=== PATIENT | female | born 2000 | race Caucasian/White ===

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

== ENCOUNTER 2025-06-27 14:30 | Outpatient (CLI) | payer BC, SELFPAY ==
--- OUTSIDE RECORDS SUMMARY | 2025-06-22 04:52 | XMS_ITS | Encounter Summary ---
Author Organization [facility] Address [address] [place] [id number] Care Team Providers Care Experience Specialist Name Role Phone Shaggy Skinner MD Primary Care Provider [phone] Source Comments This information has been disclosed to you from confidential records protectfrom disclosure by state law. You shall make no further disclosure of thisinformation without the specific, written, and informed release of theindividual to whom it pertains, or as otherwise permitted by law. A generalauthorization for the release of medical or other information is not sufficientfor the purposes of the release of HIV test results or diagnoses. [id number] Reason for Visit * Reason Comments Chest Pain Encounter Details Date Type Department Care Team (Late st Contact Info) Description 06/22/2025 4:52 AM EDT - 06/22/2025 5:36 AM EDT Emergency [facility] Emergency Department [address] [place] [id number] Discharge Disposition: ED Dismiss - Left Without Being Seen Social History Tobacco Use Types Packs/Day Years Used Date Smoking Tobacco: Every Day Cigarettes Alcohol Use Standard Drinks/Week Comments Yes 0 (1 standard drink = 0.6 oz pur e alcohol) PHQ-2 Answer Date Recorded PHQ-2 Total Score 0 06/10/2023 Yearly Questionnaire Answer Date Record ed Do you need any assistance w ith obtaining housing, meals, medication, transportation or medical equipment? No 06/10 Assistance needed for: Not on file Yearly Questionnaire Answer Date Record ed Do you need any assistance w ith obtaining housing, meals, medication, transportation or medical equipment? No 06/10 Assistance needed for: Not on file 3 Yearly Questionnaire Answer Date Record ed Do you need any assistance w ith obtaining housing, meals, medication, transportation or medical equipment? No 06/10 Assistance needed for: Not on file 3 Comments Unknown Sex and Gender Information Value Date Recorded Sex Assigned at Not on file Legal Sex Female 6:52 AM EDT Gender Identity Not on file Sexual Orientation Not on file documented as of this encounter Last Filed Vital Signs Vital Sign Reading Time Taken Comments Blood Pressure 120/79 06/22/2025 5:03 AM EDT Pulse 87 06/22/2025 5:03 AM EDT Temperature - - Respiratory Rate 16 06/22/2025 5:03 AM EDT Oxygen Saturation 98% 06/22/2025 5:03 AM EDT Inhaled Oxygen Concentration 98% 06/22/2025 5 :03 AM EDT Weight - - Height - - Body Mass Index - - documented in this encounter Nursing Notes * Braydon Velazquez RN - 06/22/2025 4:52 AM EDT Pt to ED for chest pain. Describes the pain as pressure/squeezing under right breast. Pain started approximately 20 minutes ago. Endorses bilat hand cramping. documented in this encounter ED Notes * Pat Caldwell RN - 06/22/2025 5:35 AM EDT Patient and boyfriend seen exiting the lobby. Patient's boyfriend states that patient is feeling much better and is leaving now. * Pat Caldwell RN - 06/22/2025 5:20 AM EDT Patient vomiting in trash can in ED lobby documented in this encounter Plan of Treatment Not on file documented as of this encounter Procedures Procedure Name Priority Date/Time Associated Diagnosis Comments ED ECG 12-LEAD (MUSE) STAT 06/22/2025 4:59 AM EDT documented in this encounter Results * ED ECG 12-Lead (MUSE) (06/22/2025 4:59 AM EDT) 06/22/2025 4:59 AM EDT Narrative MUSE - 06/22/2025 8:54 AM EDT Ventricular Rate: 68 BPM Atrial Rate: 68 BPM P-R Interval: 144 ms QRS Duration: 78 ms QT: 414 ms QTc: 440 ms P [place]: 77 degrees R [place]: 90 degrees T [place]: 63 degrees Diagnosis Line: ^ INTERPRETATION NOT AVAILABLE--ECG READ IN ER ^ Confirmed by PHYSICIAN, ER ([id number]), editor index Ines Adame ([id number]) on 06/22/2025 8:54:27 AM us Triage Protocol Emergency MD ECG ORDERABLES Fin al Result MUSE documented in this encounter Visit Diagnoses Not on filedocumented in this encounter Care Teams Experience Specialist Relationship Specialty Start Date End Date Shaggy Skinner MD [address] [place] [address] [place] [id number] PCP - General Internal Medicine 06/10/23 documented as of this encounter
[2025-06-27 23:01] LABS: Hematocrit 40.3 % (37.0-47.0); Hemoglobin 13.6 g/dL (12.2-16.2); Immature Granulocytes % 0.3 %; Mean Corpuscular HGB Conc 33.7 g/dL (31.8-35.4); Mean Corpuscular Hemoglobin 31.7 pg (27.0-31.2); Mean Corpuscular Volume 93.9 fl (81-99); Nucleated Red Blood Cells % 0 %; Platelet Count 304 K/mm3 (142-424); Red Blood Count 4.29 M/mm3 (4.20-5.40); Red Cell Distribution Width-SD 44.1 fL; White Blood Count 7.0 K/mm3 (4.8-10.8)
[2025-06-27 23:17] LABS: Alanine Aminotransferase 21 U/L (12-78); Albumin Level 4.6 g/dl (3.5-5.0); Albumin/Globulin Ratio 1.9 (1.1-1.8); Alkaline Phosphatase 41 U/L (38-126); Anion Gap 17.0 mEq/L (5-15); Aspartate Amino Transferase 35 U/L (14-36); Bilirubin,Total 0.8 mg/dl (0.2-1.3); Blood Urea Nitrogen 9 mg/dl (7-17); Calcium 9.7 mg/dl (8.4-10.2); Carbon Dioxide 22 mmol/L (22.0-30.0); Chloride 103 mmol/L (98-107); Creatinine,Serum 0.70 mg/dl (0.52-1.04); Estimated Glomerular Filt Rate 102 ml/min (>60); GFR (African American) 123 ML/MIN (>60); Globulin 2.4 g/dL (1.3-3.2); Potassium 5.0 mmoL/L (3.5-5.1); Sodium 137 mmol/L (136-145); Total Protein,Serum 7.0 g/dl (6.3-8.2)
[2025-06-27 23:32] LABS: T4 (Thyroxine) 8.6 ug/dl (5.53-11.0)
[2025-06-27 23:46] LABS: Thyroid Stimulating Hormone 0.77 uIU/mL (0.465-4.68)
[2025-06-27 23:48] LABS: Glucose 50 mg/dl (74-100)
[2025-06-28 00:04] LABS: Hepatitis C Ab Qual. W/ RFX NEGATIVE (Negative)
[2025-06-28 00:05] LABS: Vitamin B12 461 pg/mL (239-931)
--- OUTSIDE RECORDS SUMMARY | 2025-06-28 10:08 | XMS_ITS | Clinical Summary ---
Author Organization [facility] Address [address] [place] [id number] Care Team Providers Care Knife Grinder Name Role Phone Shaggy Skinner MD Primary Care Provider [phone] Source Comments This information has been disclosed to you from confidential records protectedfrom disclosure by state law. You shall make no further disclosure of thisinformation without the specific, written, and informed release of theindividual to whom it pertains, or as otherwise permitted by law. A generalauthorization for the release of medical or other information is not sufficientfor the purposes of therelease of HIV test results or diagnoses. [id number] Allergies No known active allergies Medications No known medications Active Problems No known active problems Encounters Date Type Department Care Team Description 06/22/2025 4:52 AM EDT - 06/22/2025 5:36 AM EDT Emergency [facility] Emergency Department [address] [place] [phone] Discharge Disposition: ED Dismiss - Left Without Being Seen from Last 3 Months Family History Medical History Relation Comments Diabetes Father Stroke Father Relation Status Comments Father Social History Tobacco Use Types Packs/Day Years Used Date Smoking Tobacco: Every Day Cigarettes Tobacco Cessation:Ready to Q uit: No Alcohol Use Standard Drinks/Week Comments Yes 0 [...] on file Sexual Orientation Not on file Last Filed Vital Signs Vital Sign Reading Time Taken Comments Blood Pressure 120/79 06/22/2025 5:03 AM EDT Pulse 87 06/22/2025 5:03 AM EDT Temperature - - Respiratory Rate 16 06/22/2025 5:03 AM EDT Oxygen Saturation 98% 06/22/2025 5:03 AM EDT Inhaled Oxygen Concentration 98% 06/22/2025 5 :03 AM EDT Weight 45.4 kg (100 lb) 06/10/2023 3:36 PM EDT Height 160 cm (5' 3 ) 06/10/2023 3:36 PM EDT Body Mass Index 17.71 06/10/2023 3:36 PM EDT Plan of Treatment Health Maintenance Due Date Last Done Comments Hepatitis C Screening (MyChart) 1999 Immunization: DTaP/Tdap/Td ( 6 - Tdap) 2010 01/29/2005, 02/16/2001, 05/12/2000, Additional history exists Alcohol Misuse Screening 2017 HIV Screening 2017 Immunization: Pneumococcal ( 1 of 2 - PCV) 2018 04/17/2001, 02/16/2001 Cervical Cancer Screening/Pa p Smear (MyChart) 2020 Depression Screening 06/10/2024 06/10/2023 Immunization: COVID-19 ( season) 2025 Immunization: Influenza (MyC levy) (#1) 2025 Immunization: Hepatitis B Completed 2000, 02/18/2000, 1999 Immunization: HPV Completed 08/29/2015, 08/08/2014 Immunization: Meningococcal ACWY Completed 05/14/20 18 Procedures Procedure Name Priority Date/Time Associated Diagnosis Comments ED ECG 12-LEAD (MUSE) STAT 06/22/2025 4:59 AM EDT from Last 3 Months Results * ED ECG 12-Lead (MUSE) (06/22/2025 4:59 AM EDT) 06/22/2025 4:59 AM EDT Narrative MUSE - 06/22/2025 8:54 AM EDT Ventricular Rate: 68 BPM Atrial Rate: 68 BPM P-R Interval: 144 ms QRS Duration: 78 ms QT: 414 ms QTc: 440 ms P [place]: 77 degrees R [place]: 90 degrees T [place]: 63 degrees Diagnosis Line: ^ INTERPRETATION NOT AVAILABLE--ECG READ IN ER ^ Confirmed by PHYSICIAN, ER ([id number]), proposal editor Ines Adame ([id number]) on 06/22/2025 8:54:27 AM us Triage Protocol Emergency MD ECG ORDERABLES Fin al Result MUSE from Last 3 Months Insurance BLUE ACCESS Care Teams Knife Grinder Relationship Specialty Start Date End Date Shaggy Skinner MD [address] [place], [place] [id number] PCP - General Internal Medicine 06/10/23
--- OUTSIDE RECORDS SUMMARY | 2025-06-28 10:08 | XMS_ITS | Clinical Summary ---
Author Organization [facility] Address [address] [place] [address] Care Team Providers Care Histopathologist Name Role Phone Shaggy Skinner MD Primary Care Provider [phone] Allergies No known active allergies Medications No known medications Family History Medical History Relation Name Comments Conversions - Other Father Known he alth problems: none Conversions - Other Mother Known he alth problems: none Multiple sclerosis Mother Relation Name Status Comments Father Mother Social History Tobacco Use Types Packs/Day Years Used Date Smoking Tobacco: Never Smokeless Tobacco: Never Tobacco Cessation:Counseling Given: Not Answered Comments Unknown Sex and Gender Information Value Date Recorded Sex Assigned at Not on file Legal Sex Female 7:18 PM EDT Gender Identity Not on file Sexual Orientation Not on file Last Filed Vital Signs Vital Sign Reading Time Taken Comments Blood Pressure 108/68 05/19/2023 10:50 AM EDT Pulse 76 05/19/2023 10:50 AM EDT Temperature - - Respiratory Rate - - Oxygen Saturation 100% 05/19/2023 10:50 AM EDT Inhaled Oxygen Concentration - - Weight 45.4 kg (100 lb) 05/19/2023 10:50 AM EDT Height 162.6 cm (5' 4 ) 05/19/2023 10:50 AM EDT Body Mass Index 17.16 05/19/2023 10:50 AM EDT Plan of Treatment Health Maintenance Due Date Last Done Comments [facility]-Depression Screening 1999 [facility]-HIV Screening 1999 [facility]-Hepatitis C Screening 1999 [facility]-Infant/Child/Adol SDOH Screenings 1999 [facility]-Varicella Vaccines (2 of 2 - 2-dose childhood series) 2003 10/28/2000 [facility]-DTaP,Tdap,and Td Vaccines (6 - Tdap) 2010 01/29/2005, 02/16/2001, 05/12/2000, Additional history exists [facility]- SDOH Screenings 2017 [facility]-Adult SDOH Screenings 2017 [facility]-Pap Smear 2020 [id number] Vaccine ( season) 2025 [facility]-Influenza Vaccine (#1) 2025 [facility]-Zoster Vaccines (1 of 2) 2049 10/28/2000 [facility]-HIB Vaccines Completed 10/28/2000, , 02/18/2000, Additional history exists [facility]-Hepatitis B Vaccines Completed 001, 02/18/2000, 1999 [facility]-Pneumococcal Vaccine: Pediatrics (0 to 5 Years) and At-Risk Patients (6 to 49 Years) Aged Out 04/17/2001, 02/16/2001 No longer eligibl e based on patient's age to complete this topic [facility]-IPV Vaccines Completed 01/29/2005, , 02/18/2000, Additional history exists HPV Vaccines Completed 08/29/2015, 08/08/2014 [facility]-Hepatitis A Vaccines Completed 05/14/2018, 03/2014 [facility]-Rotavirus Vaccines Aged Out No lo nger eligible based on patient's age to complete this topic Insurance HEMAL Care Teams Histopathologist Relationship Specialty Start Date End Date Shaggy Skinner MD [address] [place] [id number] PCP - General 02/09/21
--- OUTSIDE RECORDS SUMMARY | 2025-06-28 10:09 | XMS_ITS | Clinical Summary ---
Author Organization [facility] Address [address] [place] [address] Phone Care Team Providers Care Director [facility] Name Role Phone Unavailable Primary Care Provider Unavailabl e Allergies No known active allergies Medications No known medications Social History Tobacco Use Types Packs/Day Years Used Date Smoking Tobacco: Every Day Cigarettes Smokeless Tobacco: Never Comments:pt vapes Alcohol Use Standard Drinks/Week Comments Yes 0 (1 standard drink = 0.6 oz pur e alcohol) occas Comments No Sex and Gender Information Value Date Recorded Sex Assigned at Not on file Legal Sex Female 5:45 PM EDT Gender Identity Not on file Sexual Orientation Not on file Last Filed Vital Signs Vital Sign Reading Time Taken Comments Blood Pressure 113/68 06/19/2022 1:02 PM EDT Pulse 109 06/19/2022 1:02 PM EDT Temperature 37.5 C (99.5 F) 06/19/2022 1:02 PM EDT Respiratory Rate 18 06/19/2022 1:02 PM EDT Oxygen Saturation 100% 06/19/2022 1:02 PM EDT Inhaled Oxygen Concentration - - Weight 43.1 kg (95 lb) 06/19/2022 1:02 PM EDT Height 162.6 cm (5' 4 ) 06/19/2022 1:02 PM EDT Body Mass Index 16.31 06/19/2022 1:02 PM EDT Plan of Treatment Health Maintenance Due Date Last Done Comments Annual Wellness Exam 2002 DTaP/TDaP/Td (6 - Tdap) 2010 01/30/20, 02/16/2001, 05/12/2000, Additional history exists Pneumococcal Vaccine 0-49 (1 of 2 - PCV) 2018 04/17/2001, 02/16/2001 Cervical Cancer Screening 2020 Pap Smear 2020 COVID-19 Vaccine ( season) 2025 Influenza Vaccine (#1) 2025 Hepatitis B Vaccine Completed 10/28/2000, 02/18/2000, 1999 HPV Completed 08/29/2015, 08/08/2014 Meningococcal B Vaccine Aged Out No l onger eligible based on patient's age to complete this topic Insurance DANIELLA O
[2025-06-29 08:14] LABS: Hepatitis B Surface Antigen Negative (Negative)
== END 2025-06-27 23:59 | disposition home or self-care (01) ==
LOC: LAB.DROPOF 06-28 10:02
PROVIDERS: PCP Family Medicine; Visit Provider Family Medicine
DX: F41.9 Anxiety disorder, unspecified (principal); G47.00 Insomnia, unspecified; R53.83 Other fatigue; Z11.4 Encounter for screening for human immunodeficiency virus [HIV]; Z11.59 Encounter for screening for other viral diseases
CPT/HCPCS: 80053; 82607; 84436; 84443; 85025; 86803; 87340; 87389